=== PATIENT | male | born 1975 | race Caucasian/White ===

== ENCOUNTER 2024-07-26 14:05 | Emergency (ER) | payer BC, SELFPAY ==
[2024-07-26 14:05] VITALS: BMI 32.5
[2024-07-26 14:22] VITALS: BP 161/84; PULSE 93; RESP 18; TEMP 37.3; O2SAT 97
--- NOTE | 2024-07-26 14:25 | XR_ITS ---
Examination: CT abdomen and pelvis without contrast. Coronal 3-D reconstructions. Sagittal 2-D reconstructions. Date and time of exam:July 26, 2024 at 1429 hrs. Indications: Onset lower abdominal pain today CTDI: vol (mGy): 14.2 DLP: (mGycm): 1036 Technique: Axial images of the abdomen have been obtained, 3 mm slice thickness Intravenous contrast material has not been administered. Low dose protocols were performed. One or more of the following dose reduction techniques were used; automated exposure control, adjustment of the mA and/or KV according to patient size, use of iterative reconstruction technique. Findings: No focal liver or splenic lesions No gallstones No pancreatic or adrenal mass End-stage atrophic right kidney with hypertrophy left kidney No left hydronephrosis Normal appendix No bowel obstruction Colonic diverticulosis Acute diverticulitis sigmoid colon axial image 222 but no peridiverticular abscess Bladder intact Impression: Acute sigmoid diverticulitis, no pelvic abscess
[2024-07-26 14:38] LABS: Collection Type, Urine Clean Catch; Squamous Epithelial Cell,Urine 0 /hpf (0-5); WBC,Urine 0 /hpf (0-5)
[2024-07-26] MEDS: IBUPROFEN TAB 400 MG TABLET 800 MG PO (14:41)
[2024-07-26 14:43] LABS: Bilirubin,Urine Negative (Negative); Blood,Urine Negative (Negative); Clarity,Urine Clear (Clear/Hazy); Color,Urine Colorless (Lt Yel-Yel); Culture Indicated,Urine Not Indicated; Glucose, Urine Negative (Negative); Ketones,Urine Negative (Negative); Leukocyte Esterase,Urine Negative (Negative); Nitrite,Urine Negative (Negative); PH,Urine 6.5 (5.0-7.0); Protein,Urine Negative (Neg - Trace); RBC,Urine < 1 /hpf (0-3); Specific Gravity,Urine 1.009 (1.001-1.035); Urobilinogen,Urine Negative mg/dL (0.0-1.0)
[2024-07-26 15:11] LABS: Basophils % (Auto) 0 % (0-2.5); Eosinophils # (Auto) 0.2 Thou/mm3 (0.0-0.5); Eosinophils % (Auto) 1 % (0-10); Hematocrit 40.1 % (41.0-53.0); Hemoglobin 13.8 g/dL (13.5-16.0); Immature Granulocytes % (Auto) 0 % (0-0); Immature Granulocytes Auto 0.05 Thou/mm3 (0.00-0.00); Lymphocytes # (Auto) 2.1 Thou/mm3 (1.0-4.8); Lymphocytes % (Auto) 15 % (10-50); Mean Corpuscular HGB Conc 34.4 g/dl (31.0-37.0); Mean Corpuscular Hemoglobin 29.9 pg (25.0-35.0); Mean Corpuscular Volume 87 fL (80-100); Monocytes # (Auto) 1.6 Thou/mm3 (0.0-0.8); Monocytes % (Auto) 11 % (0-12); Neutrophils # (Auto) 10.2 Thou/mm3 (1.8-7.7); Neutrophils % (Auto) 72 % (37-80); Nucleated Red Blood Cell % 0 /100 WBC (0); Platelet Count 214 Thou/mm3 (140-440); RDW Standard Deviation 41.1 fL (35.1-43.9); Red Blood Count 4.61 Miln/mm3 (4.50-5.90); White Blood Count 14.2 Thou/mm3 (3.8-10.6)
[2024-07-26 15:30] LABS: Alanine Aminotransferase 29 U/L (10-49); Albumin/Globulin Ratio 2.1 (1.2-2.2); Alkaline Phosphatase 109 U/L (46-116); Anion Gap 8 (7-16); Aspartate Amino Transferase 26 U/L (0-34); BUN/Creatinine Ratio 12 Ratio (12-20); Blood Urea Nitrogen 13 mg/dL (9-23); Calcium 9.8 mg/dL (8.3-10.6); Calcium (Corrected) 9.8 mg/dL (8.5-10.1); Carbon Dioxide 27.5 mMol/L (20.0-31.0); Chloride 104 mMol/L (98-107); Creatinine (Component) 1.1 mg/dL (0.6-1.3); Estimated Creatinine Clearance 111.2 mL/min (>60); Globulin 2.4 gm/dL (2.3-3.5); Glucose 109 mg/dL (74-106); Lipase 29 U/L (12-53); Osmolality,Calculated 278 (275-295); Potassium 3.8 mMol/L (3.4-5.1); Sodium 139 mMol/L (136-145); Total Protein 7.4 gm/dL (5.7-8.2); eGFR > 60 See Note
--- NOTE | 2024-07-26 15:52 | PD.EDABDPN ---
ED Abdominal Pain RME/HPI General Chief Complaint: Abdominal Pain Stated complaint: LOWER ABD PAIN WITH BODY ACHE SINCE LAST NIGHT Time seen by provider: 07/26/24 14:16 Arrival date/time: 07/26/24 14:05 48-year-old male with history of hypertension, diverticulitis presents the emergency department complaints of lower abdominal pain patient reports no nausea vomiting or fever patient ports no chest pain shortness of breath. Patient reports symptoms onset last night Limitations: no limitations Related Data Home Medications ?Medication ?Instructions ?Recorded ?Confirmed lisinopril 20 mg tablet 20 mg PO QDAY 12/23/17 02/26/19 omeprazole 20 mg capsule,delayed 20 mg PO DAILY 12/23/17 02/26/19 release Previous Rx's ?Medication ?Instructions ?Recorded ciprofloxacin HCl 500 mg tablet 500 mg PO BID 7 days #14 tabs 07/26/24 ibuprofen 800 mg tablet 800 mg PO TID PRN pain #30 tabs 07/26/24 metronidazole 500 mg tablet 500 mg PO TID 7 days #21 tabs 07/26/24 Allergies Allergy/AdvReac Type Severity Reaction Status Date / Time No Known Allergies Allergy Verified 07/26/24 14:07 Review of Systems Review of Systems Systems Reviewed: All systems reviewed, normal except as documented Constitutional Constitutional: Reports system reviewed and no additional complaints, except as documented, Denies fever(s) and Denies headache(s) Eyes Eyes: Reports system reviewed and no additional complaints, except as documented and Denies blurry vision ENT Ears, Nose, Mouth, and Throat: Reports system reviewed and no additional complaints, except as documented, Denies headache(s), Denies nasal congestion and Denies nasal discharge Cardiovascular Cardiovascular: Reports system reviewed and no additional complaints, except as documented, Denies chest pain and Denies dyspnea Respiratory Respiratory: Reports system reviewed and no additional complaints, except as documented, Denies chest congestion, Denies cough and Denies dyspnea Gastrointestinal Gastrointestinal: Reports system reviewed and no additional complaints, except as documented and Reports abdominal pain Integumentary/Breasts Skin/Breast: Reports system reviewed and no additional complaints, except as documented and Denies rash Neurologic Neurologic: Reports system reviewed and no additional complaints, except as documented, Reports as per HPI and Denies headache(s) Past Medical History Past Medical History CARDIAC: Positive Cardiac Disorders and Hypertension; Negative Congestive Heart Failure RESPIRATORY: Negative Chronic Obstructive Pulmonary Disease (COPD) GASTROINTESTINAL: Positive Gastrointestinal Disorders, Hemorrhoids and Gastroesophageal Reflux Disease GENITOURINARY: Negative Renal Disease ENDOCRINE: Negative Diabetes Mellitus Type 1 or Diabetes Mellitus Type 2 Social History SMOKING STATUS: Never smoker ED Exam General Limitations: Present no limitations General appearance: Present alert and in no apparent distress Head Head exam: Present atraumatic Eye Eye exam: Present normal appearance, PERRL and EOMI; Absent conjunctival injection ENT ENT exam: Present normal exam, normal oropharynx and mucous membranes moist Neck Neck exam: Present normal inspection, full ROM and trachea midline Chest Chest inspection: Present normal inspection and symmetric chest wall rise Respiratory Respiratory exam: Present normal lung sounds bilaterally; Absent respiratory distress Cardiovascular Cardiovascular exam: Present regular rate, normal rhythm and normal heart sounds Abdominal Exam Abdominal exam: Present soft, tenderness and normal bowel sounds; Absent distention, guarding, rebound or rigidity Abdominal tenderness: Present suprapubic and mild Extremities Exam Extremities exam: Present normal inspection and full ROM Back Exam Back exam: Present normal inspection and full ROM Neurological Exam Neurological exam: Present alert, oriented X3 and CN II-XII intact Psychiatric Psychiatric exam: Present normal affect and normal mood Skin Skin exam: Present warm, dry, intact and normal color Course Quality Measures none Orders Category Date Time Status CT abdomen pelvis wo con Stat Exams 07/26/24 14:25 Completed CBC Stat Lab 07/26/24 14:42 Completed Comprehensive Metabolic Panel Stat Lab 07/26/24 14:42 Completed Lipase Stat Lab 07/26/24 14:42 Completed UA, C/S IF [Urinalysis, C/S if Indicated] Stat Lab 07/26/24 14:31 Completed Ibuprofen Tab [Motrin Tab] Med 07/26/24 14:26 Discontinued 800 mg PO X1 ONE Lidocaine 1% 20 ml [Xylocaine 1% 20 ML] Med 07/26/24 16:32 Discontinued 2.1 ml INFL X1 ONE cefTRIAXone [Rocephin] Med 07/26/24 16:32 Discontinued 1,000 mg IM X1 ONE Vital Signs Vital signs: Vital Signs Temperature 99.2 F 07/26/24 14:22 Pulse Rate 93 07/26/24 14:22 Respiratory Rate 18 07/26/24 14:22 Blood Pressure 161/84 H 07/26/24 14:22 Pulse Oximetry (%) 97 07/26/24 14:22 Oxygen Delivery Method Room Air 07/26/24 14:22 O2 saturation 97% room air within normal limits Abdominal Pain MDM MDM Narrative MDM Narrative:: 48-year-old male with history of hypertension, diverticulitis presents the emergency department complaints of lower abdominal pain patient reports no nausea vomiting or fever patient ports no chest pain shortness of breath. Patient reports symptoms onset last night On exam patient well-appearing patient does not appear ill or toxic patient has mild tenderness suprapubic region Lab work and CT scan obtained CT scan consistent with diverticulitis Patient given Rocephin in the emergency department as well as ibuprofen Patient discharged home in no distress to follow-up with primary care doctor in the next 24 to 48 hours and for any worsening symptoms to return to the ER immediately Patient data External records reviewed:: [facility] previous records Clinical information provided by:: patient Social determinants that could affect healthcare access:: none Patient has the following chronic illnesses:: None How is presenting disease/condition affected by chronic disease/condition?: no chronic disease Evaluation data The following diagnostics were reviewed and interpreted by me:: lab results and radiology exam(s) Lab and/or radiology exams considered but not ordered:: Labs and radiology obtained Interpretation Summary: Reviewed by me Medications / Prescriptions Medications or Prescriptions considered but not ordered:: Given Medication administrations:: Medication Administration History Discontinued Medications Ceftriaxone Sodium (Ceftriaxone Sod Inj 1,000 Mg Vial) 1,000 mg IM X1 ONE Stop: 07/26/24 16:33 Last Admin: 07/26/24 16:41 Dose: 1,000 mg Documented By: CHELO Ibuprofen (Ibuprofen Tab 400 Mg Tablet) 800 mg PO X1 ONE Stop: 07/26/24 14:27 Last Admin: 07/26/24 14:41 Dose: 800 mg Documented By: CHELO Lidocaine HCl (Lidocaine Hcl 1% 20 Ml Vial) 2.1 ml INFL X1 ONE Stop: 07/26/24 16:33 Last Admin: 07/26/24 16:40 Dose: 2.1 ml Documented By: CHELO Given Consultations Consultation(s) initiated? (list below): No Diagnosis Differential diagnosis abdominal pain: abdominal pain, acute appendicitis, calculus of kidney, constipation, diverticulitis and pancreatitis Most likely diagnosis given after review of the tests above:: Diverticulitis Admission Indicated Admission indicated?: not indicated Admission Request Was there a request for admission?: No Disposition Plan Disposition Plan: Discharge Discharge Attestation Discharge Attestation: The patient and all family members were given an opportunity to ask questions and understood the discharge instructions. Discharge instructions specifically effects, indications for sooner follow up or return to the emergency department, and the expected course of current diagnosis. Patient condition: Stable Discharge Plan Plan Patient Disposition: HOME (Self Care) Disposition Comment: Stable Prescriptions/Referrals Prescriptions/Med Rec: New ibuprofen 800 mg tablet 800 mg PO TID PRN (Reason: pain) Qty: 30 0RF metronidazole 500 mg tablet 500 mg PO TID 7 Days Qty: 21 0RF ciprofloxacin HCl 500 mg tablet 500 mg PO BID 7 Days Qty: 14 0RF No Action lisinopril 20 mg Tablet 20 mg PO QDAY omeprazole 20 mg Capsule,Delayed Release(Dr/Ec) 20 mg PO DAILY Referrals: No Primary/Family,Physician [Primary Care Provider] - 07/27/24 Problem List Clinical Impression: Diverticulitis Patient/Caregiver Discharge Instructions Education Materials: ED Diverticulitis Additional Instructions: Please follow up with your primary care doctor in the next 24-48hrs for any worsening symptoms return here immediately Print Language: Kiswahili Stand Alone Forms: Shanae Award Info., Patient Portal Info Letter PA/TECH[employer] Supervising Physician PA/DUTCH Supervising Physician: dr bourgeois
[2024-07-26] MEDS: LIDOCAINE HCL 1% 20 ML VIAL 2.1 ML INFL (16:40)
[2024-07-26] MEDS: cefTRIAXone SOD INJ 1,000 MG VIAL 1000 MG IM (16:41)
== END 2024-07-26 16:51 | disposition home or self-care (01) ==
PROVIDERS: Nurse Practitioner Primary Care; Emergency Provider Emergency Medicine
DX: K57.32 Diverticulitis of large intestine without perforation or abscess without bleeding (principal)
CPT/HCPCS: 36415; 74176; 80053; 81001; 83690; 85025; 96372; 99284; J0696; J3490; A9270

== ENCOUNTER 2024-12-10 10:40 | Day surgery (SDC) | payer BC, SELFPAY ==
[2024-12-07 14:33] VITALS: BMI 33.1
[2024-12-10] VITALS (14 sets, daily range): BP systolic 111–157; BP diastolic 72–107; PULSE 70–113; RESP 15–22; TEMP 36.6–37.1; O2SAT 94–100; BMI 32.7
[2024-12-10] MEDS: fentaNYL CIT INJ 50 mCg/ML AMP 2ML (ASD USE ONLY) IV (12:46)
[2024-12-10] MEDS: MIDAZOLAM INJ 1 MG/ML VIAL 2 ML (ASD USE ONLY) 2 MG IV (12:46)
[2024-12-10] MEDS: MEPERIDINE INJ 25 MG/ML VIAL (ASD USE ONLY) 50 MG IV (12:46)
[2024-12-10] MEDS: SODIUM CHLORIDE 0.9% 500 ML 500 ML 20 ML IV (12:46)
[2024-12-10] MEDS: DiphenhydrAMINE INJ 50 MG/ML VIAL 25 MG IV (12:47)
== END 2024-12-10 13:32 | disposition home or self-care (01) ==
PROVIDERS: PCP Family Medicine; Referring Provider Specialist; Visit Provider Specialist
PROC: 0DBE8ZX Excision of Large Intestine, Via Natural or Artificial Opening Endoscopic, Diagnostic (ICD-10-PCS; CPT 45380; principal; 2024-12-10 09:30)
DX: Z12.11 Encounter for screening for malignant neoplasm of colon (principal); Z80.0 Family history of malignant neoplasm of digestive organs; K64.9 Unspecified hemorrhoids; K57.30 Diverticulosis of large intestine without perforation or abscess without bleeding; Q43.8 Other specified congenital malformations of intestine
CPT/HCPCS: 45378; J1200; J2175; J2250; J3010; J7040

== ENCOUNTER → 2025-02-21 | Outpatient (CLI) | payer BC, SELFPAY ==
[2025-02-21 08:08] LABS: Collection Type, Urine Clean Catch; Squamous Epithelial Cell,Urine 0 /hpf (0-5)
[2025-02-21 08:25] LABS: Basophils # (Auto) 0.1 Thou/mm3 (0.0-0.2); Basophils % (Auto) 1 % (0-2.5); Eosinophils # (Auto) 0.3 Thou/mm3 (0.0-0.5); Eosinophils % (Auto) 4 % (0-10); Hematocrit 40.2 % (41.0-53.0); Hemoglobin 14.2 g/dL (13.5-16.0); Immature Granulocytes % (Auto) 0 % (0-0); Immature Granulocytes Auto 0.02 Thou/mm3 (0.00-0.00); Lymphocytes % (Auto) 29 % (10-50); Mean Corpuscular HGB Conc 35.3 g/dl (31.0-37.0); Mean Corpuscular Hemoglobin 29.8 pg (25.0-35.0); Mean Corpuscular Volume 85 fL (80-100); Monocytes # (Auto) 0.6 Thou/mm3 (0.0-0.8); Monocytes % (Auto) 9 % (0-12); Neutrophils # (Auto) 3.9 Thou/mm3 (1.8-7.7); Neutrophils % (Auto) 56 % (37-80); Nucleated Red Blood Cell % 0 /100 WBC (0); Platelet Count 225 Thou/mm3 (140-440); RDW Standard Deviation 41.6 fL (35.1-43.9); Red Blood Count 4.76 Miln/mm3 (4.50-5.90); White Blood Count 6.9 Thou/mm3 (3.8-10.6)
[2025-02-21 08:36] LABS: Glucose Estimated Average 103 mg/dL (80-131); Hemoglobin A1C 5.2 % Hgb (4.8-6.0)
[2025-02-21 08:37] LABS: Bilirubin,Urine Negative (Negative); Blood,Urine Negative (Negative); Clarity,Urine Clear (Clear/Hazy); Color,Urine Lt-Yellow (Lt Yel-Yel); Glucose, Urine Negative (Negative); Ketones,Urine Negative (Negative); Leukocyte Esterase,Urine Negative (Negative); Nitrite,Urine Negative (Negative); PH,Urine 6.5 (5.0-7.0); Protein,Urine Negative (Neg - Trace); RBC,Urine 1 /hpf (0-3); Urobilinogen,Urine Negative mg/dL (0.0-1.0); WBC,Urine < 1 /hpf (0-5)
[2025-02-21 08:41] LABS: Alanine Aminotransferase 37 U/L (10-49); Albumin, Serum 4.5 gm/dL (3.5-5.0); Alkaline Phosphatase 92 U/L (46-116); Anion Gap 9 (7-16); Aspartate Amino Transferase 28 U/L (0-34); BUN/Creatinine Ratio 14 Ratio (12-20); Bilirubin,Total 0.6 mg/dL (0.3-1.2); Blood Urea Nitrogen 14 mg/dL (9-23); Calcium 9.4 mg/dL (8.3-10.6); Calcium (Corrected) 9.4 mg/dL (8.5-10.1); Carbon Dioxide 25.8 mMol/L (20.0-31.0); Cardiac Risk Estimate 2.8 RATIO (4.0-6.7); Chloride 106 mMol/L (98-107); Cholesterol 170 mg/dL (132-200); Globulin 2.2 gm/dL (2.3-3.5); Glucose 106 mg/dL (74-106); HDL Cholesterol 60 mg/dL (40-60); LDL Cholesterol,Calculated 95 mg/dL (0-130); Osmolality,Calculated 281 (275-295); Potassium 4.3 mMol/L (3.4-5.1); Sodium 141 mMol/L (136-145); Total Protein 6.7 gm/dL (5.7-8.2); Triglycerides 76 mg/dL (30-150); eGFR > 60 See Note
[2025-02-21 08:44] LABS: Vitamin D 25 Hydroxy Total 34.9 ng/mL (7.3-40.2)
[2025-02-27 13:49] LABS: PSA, Free 0.21 ng/mL; PSA, Total 0.9 ng/mL (< OR = 4.0)
== END | disposition home or self-care (01) ==
PROVIDERS: PCP Nurse Practitioner Family; Referring Provider Nurse Practitioner Family; Visit Provider Nurse Practitioner Family
DX: E56.9 Vitamin deficiency, unspecified (principal); I10 Essential (primary) hypertension; N40.0 Benign prostatic hyperplasia without lower urinary tract symptoms; Z13.1 Encounter for screening for diabetes mellitus; Z13.220 Encounter for screening for lipoid disorders
CPT/HCPCS: 36415; 80053; 80061; 81001; 82306; 83036; 84153; 84154; 85025

== ENCOUNTER 2025-08-07 09:44 | Emergency (ER) | payer BC, SELFPAY ==
[2025-08-07 10:32] VITALS: BP 114/76; PULSE 88; RESP 18; TEMP 37.1; O2SAT 98; BMI 35.0
--- NOTE | 2025-08-07 10:43 | PD.EDNV ---
Nausea/Vomit./Diarrhea-RME/HPI General Chief complaint: Nausea/Vomiting/Diarrhea Stated complaint: Diarrhea, lower abdomen pain X 4 days Time Seen by Provider: 08/07/25 10:38 Arrival date/time: 08/07/25 09:44 RME / HPI RME / HPI Narrative: 49-year-old male with past medical history of diverticulosis, hemorrhoids, diverticulitis status post colonoscopy 1 year ago without any additional findings presents to the ER complaining of lower abdominal pain along with diarrhea which has been watery without any blood or mucus for the past 4 days. Denies any fever, nausea, vomiting, dysuria. Related Data Home Medications ?Medication ?Instructions ?Recorded ?Confirmed lisinopril 20 mg tablet 40 mg PO QDAY 12/23/17 12/07/24 omeprazole 20 mg capsule,delayed 40 mg PO DAILY 12/23/17 12/07/24 release amlodipine 5 mg tablet 5 mg PO .qhs 12/07/24 12/07/24 gabapentin 300 mg capsule 300 mg PO QDAY 12/07/24 12/07/24 tamsulosin 0.4 mg capsule 0.4 mg PO Q24H 12/07/24 12/07/24 Previous Rx's ?Medication ?Instructions ?Recorded ciprofloxacin HCl 500 mg tablet 500 mg PO Q12H #20 tabs 08/07/25 metronidazole 500 mg tablet 500 mg PO Q8H 10 days #30 tabs 08/07/25 ondansetron 4 mg disintegrating 4 mg PO Q8H PRN nausea and 08/07/25 tablet vomiting #12 tabs Allergies Allergy/AdvReac Type Severity Reaction Status Date / Time No Known Allergies Allergy Verified 08/07/25 09:48 ED Exam Narrative Physical exam: Constitutional: Patient alert and oriented. Well appearing. No acute distress. Not toxic appearing. Head: Normocephalic, atraumatic. Eyes: Periorbital regions bilaterally normal to inspection. Conjunctiva clear bilaterally. Sclera anicteric bilaterally. Pupils equal, round, reactive to light bilaterally. Extraocular movements intact bilaterally. Mouth/Throat: Mucous membranes moist. No stridor or muffled voice. No trismus. Handling secretions without difficulty. Airway widely patent. Neck: Supple. Trachea midline. No JVD. No nuchal rigidity. Normal range of motion. Respiratory: Normal effort. No accessory muscle use or respiratory distress. Lungs clear to auscultation bilaterally without rhonchi, wheezes, or crackles. Cardiovascular: RRR. Normal S1/S2. No murmurs or rubs. Radial pulses intact bilaterally. Abdomen: Soft. Non-distended. Positive left and right lower quadrant tenderness to palpation. No guarding or rebound. No pulsatile mass. Negative Epps?s sign. Negative McBurney?s point tenderness. Negative Rovsing?s. Back: No midline tenderness or step-offs. No CVA tenderness to palpation bilaterally. Upper Extremities: No gross deformities. Lower Extremities: No gross deformities. No edema or calf tenderness. Neuro: Speech normal. No gross motor or sensory deficits to upper or lower extremities bilaterally. GCS 15. CN II?XII grossly intact. Skin: Warm, dry, normal color. Psych: Normal affect. Cooperative. Normal insight. Course Quality Measures none Orders Category Date Time Status NPO NOW Care 08/07/25 10:45 Active Diet NPO (NOW) Diet 08/07/25 10:[address] abdomen pelvis wo con Stat Exams 08/07/25 10:45 Completed CBC Stat Lab 08/07/25 10:58 Completed CMP [Comprehensive Metabolic Panel] Stat Lab 08/07/25 10:58 Completed Lipase Stat Lab 08/07/25 10:58 Completed Urinalysis Stat Lab 08/07/25 12:09 Completed Urine Culture Stat Lab 08/07/25 12:09 Received c diff [Clostridium Difficile PCR] Stat Lab 08/07/25 Ordered Ciprofloxacin HCl [Ciprofloxacin] Med 08/07/25 15:25 Discontinued 500 mg PO X1 ONE Ketorolac Inj [Toradol Inj] Med 08/07/25 10:45 Discontinued 30 mg IM X1 ONE Ondansetron Odt [Zofran Odt] Med 08/07/25 10:45 Discontinued 4 mg PO X1 ONE metroNIDAZOLE [Flagyl] Med 08/07/25 15:25 Discontinued 500 mg PO X1 ONE Vital Signs Vital signs: Vital Signs Temperature 98.7 F 08/07/25 10:32 Pulse Rate 88 08/07/25 10:32 Respiratory Rate 18 08/07/25 10:32 Blood Pressure 114/76 08/07/25 10:32 Pulse Oximetry (%) 98 08/07/25 10:32 Oxygen Delivery Method Room Air 08/07/25 10:32 Nausea/Vomiting/Diarrhea MDM Narrative MDM Narrative:: MDM: The patient presents with abdominal pain without definite explanation found on evaluation today. I suspect patient's pain may be secondary to enteritis versus colitis versus early diverticulitis which is uncomplicated at this time. There is no abscess or perforation. However, there are no signs of peritonitis or other life-threatening or serious etiology. I considered admission; however, given negative work up and imaging, admission is not indicated. Serial abdominal exams were benign throughout the ED stay, and the patient tolerated oral intake without difficulty. Patient will be provided with ciprofloxacin and Flagyl and I advised patient about medication precautions including risk of tendon rupture with these medications. I also advised patient to perform a clear liquid diet and advance as tolerated with low fiber. The inherent uncertainty with undifferentiated abdominal pain was emphasized, and strict return precautions were provided. The patient has been instructed that this presentation could represent an early acute abdominal process. The plan is for mandatory re-evaluation within 24 hours and immediate return for worsening, persistence, or change in symptoms. The patient may follow up with their primary care provider or return to the ED as appropriate. The patient appears stable for discharge at this time. At the time of reassessment prior to discharge, the patient remains alert and oriented ?3 with GCS 15. Serial abdominal exams benign without peritonitis. Vitals are normal, pain is controlled, and the patient is tolerating oral intake without nausea or vomiting. The patient is agreeable to discharge and verbalizes understanding of the diagnosis, studies, treatment plan, medications (including side effects/precautions), and strict ER return precautions as discussed in the ED. All concerns were addressed, and the patient is comfortable with the plan. Patient data External records reviewed:: [facility] previous records Clinical information provided by:: patient Social determinants that could affect healthcare access:: housing Patient has the following chronic illnesses:: As noted How is presenting disease/condition affected by chronic disease/condition?: no chronic disease Evaluation data The following diagnostics were reviewed and interpreted by me:: other (specify) Lab and/or radiology exams considered but not ordered:: Additional Labs and radiology considered, but not ordered as they were not clinically indicated at this time. Interpretation Summary: Lab work with a normal white blood cell count of 8.6, monocyte percentage elevated 15, monocyte number elevated 1.3 thousand, immature granulocyte number minimally elevated 0.08 thousand and immature granulocyte site percentage minimally elevated 1% Potassium minimally low 3.2, glucose minimally elevated 108, AST minimally elevated 37 otherwise no severe metabolic or electrolyte abnormality and lipase within normal limits UA notable for 5 RBCs rare bacteria trace blood and trace protein however no signs of nitrites or leuks CT scan notable for fluid stranding surrounding the cecum as well as the ascending colon and ventral mural wall thickening of the distal terminal ileum. The appendix is well-seen and is normal. There is no perforation or abscess appreciated. Additionally there is no focal diverticulitis appreciated. Medications / Prescriptions Medications / Prescriptions considered but not ordered:: I ordered medications based on the patient?s clinical needs and assessment, as documented in the chart. For medications not prescribed, they were not indicated for the patient's current condition, and I determined they were unnecessary at this time to avoid potential risks or complications. Medication administrations:: Medication Administration History Discontinued Medications Ciprofloxacin (Ciprofloxacin Hcl 250 Mg Tablet) 500 mg PO X1 ONE Stop: 08/07/25 15:26 Ketorolac Tromethamine (Ketorolac Inj 30 Mg/Ml Vial) 30 mg IM X1 ONE Stop: 08/07/25 10:46 Last Admin: 08/07/25 10:55 Dose: 30 mg Documented By: KAYDEN Metronidazole (Metronidazole 250 Mg Tablet) 500 mg PO X1 ONE Stop: 08/07/25 15:26 Ondansetron HCl (Ondansetron Odt 4 Mg Tabrap) 4 mg PO X1 ONE; Protocol Stop: 08/07/25 10:46 Last Admin: 08/07/25 10:55 Dose: 4 mg Documented By: KAYDEN As noted Consultations Consultation(s) initiated? (list below): No Diagnosis Nausea Differential Diagnosis: traveler's diarrhea, food poisoning and gastroenteritis Most likely diagnosis given after review of the tests above:: Colitis Admission Indicated Admission indicated?: not indicated Admission Request Was there a request for admission?: No Disposition Plan Disposition Plan: Discharge Discharge Attestation Discharge Attestation: The patient and all family members were given an opportunity to ask questions and understood the discharge instructions. Discharge instructions specifically effects, indications for sooner follow up or return to the emergency department, and the expected course of current diagnosis. Patient condition: Stable Discharge Plan Plan Patient Disposition: HOME (Self Care) Patient condition on transfer: Stable Prescriptions/Referrals Prescriptions/Med Rec: New metronidazole 500 mg tablet 500 mg PO Q8H 10 Days Qty: 30 0RF ciprofloxacin HCl 500 mg tablet 500 mg PO Q12H Qty: 20 0RF ondansetron 4 mg tablet,disintegrating 4 mg PO Q8H PRN (Reason: nausea and vomiting) Qty: 12 0RF Rx Instructions: 1-2 tabs PO Q8Hr prn nausea or vomit No Action lisinopril 20 mg Tablet 40 mg PO QDAY omeprazole 20 mg Capsule,Delayed Release(Dr/Ec) 40 mg PO DAILY amlodipine 5 mg tablet 5 mg PO .qhs tamsulosin 0.4 mg capsule 0.4 mg PO Q24H gabapentin 300 mg capsule 300 mg PO QDAY Referrals: No Primary/Family,Physician [Primary Care Provider] - In 1 week Problem List Clinical Impression: Gastroenteritis, Colitis, Diverticulitis Impression comment: Concern for early acute uncomplicated diverticulitis as well Patient/Caregiver Discharge Instructions Education Materials: ED Diverticulitis Additional Instructions: Follow up with your primary medical doctor within 24 hours. Return to the Emergency Room immediately for any new, worsening, continuing symptoms or any concerns at all. Return to the Emergency Room within 24 hours if you are unable to follow up with your primary medical doctor within 24 hours. Follow-up with your GI doctor this week as well. Perform a clear liquid diet and advance as tolerated. Perform a low fiber diet. Print Language: Azeri Stand Alone Forms: Shanae Award Info., Patient Portal Info Letter PA/[employer] Supervising Physician PA/DUTCH Supervising Physician: Dr. Altman
--- NOTE | 2025-08-07 10:45 | XR_ITS ---
Examination: CT abdomen and pelvis without contrast. Coronal 3-D reconstructions. Sagittal 2-D reconstructions. Date and time of exam: 08/07/2025 at 11:11 a.m. Clinical history periumbilical pain and upper and lower abdominal pain with nausea of 1 day duration CTDI: vol (mGy): 14.5 DLP: (mGycm): 994 Technique: Axial images of the abdomen have been obtained, 3 mm slice thickness Intravenous contrast material has not been administered. Low dose protocols were performed. One or more of the following dose reduction techniques were used; automated exposure control, adjustment of the mA and/or KV according to patient size, use of iterative reconstruction technique. Findings: The lower lungs are clear normal. In the spine there is major complete degenerative disc space narrowing at L4-5 and L5-S1 with surrounding osteophyte. The noncontrast appearance of the liver and spleen and pancreas appear normal. Both adrenal glands appear normal. The right kidney is severely atrophic, which could be congenital in nature. There is compensatory enlargement of the left kidney which measures 12 cm in length, the CT appearance of the left kidney is otherwise entirely normal. The loops of small bowel appear normal. In the region of the ileocecal valve and cecum and ascending colon, the appendix is well-seen and is perfectly normal. However there is mild but definite fluid intensity stranding noted surrounding the cecum and proximal ascending colon I am not able to identify a specific focus of diverticulitis, etc. There is intramural circumferential thickening of the bowel wall involving the distal loop of terminal ileum. The remainder of the colon appears normal. The patient's prostate gland is enlarged measuring 5.5 cm in diameter. IMPRESSION: 1. There is very severe, complete atrophy of the right kidney which is probably congenital. There is mild compensatory hypertrophy of the left kidney which otherwise appears normal. 2. There is definite abnormal fluid density stranding in the pericolic fat surrounding the cecum and proximal ascending colon. There is mild definite circumferential intramural thickening involving the distal 10 cm of the terminal ileum. Appendix is well-seen and perfectly normal. These findings do definitely suggest the presence of some localized inflammation in this region. 3. There is enlargement of the prostate gland. There is major degenerative disc disease at L4-5 and L5-S1.
[2025-08-07] MEDS: KETOROLAC INJ 30 MG/ML VIAL IM (10:55)
[2025-08-07] MEDS: ONDANSETRON ODT 4 MG TABRAP PO (10:55)
[2025-08-07 11:29] LABS: Basophils # (Auto) 0.0 Thou/mm3 (0.0-0.2); Basophils % (Auto) 1 % (0-2.5); Eosinophils # (Auto) 0.1 Thou/mm3 (0.0-0.5); Eosinophils % (Auto) 1 % (0-10); Hematocrit 42.1 % (41.0-53.0); Hemoglobin 14.7 g/dL (13.5-16.0); Immature Granulocytes Auto 0.08 Thou/mm3 (0.00-0.00); Lymphocytes # (Auto) 1.9 Thou/mm3 (1.0-4.8); Lymphocytes % (Auto) 22 % (10-50); Mean Corpuscular HGB Conc 34.9 g/dl (31.0-37.0); Mean Corpuscular Hemoglobin 29.3 pg (25.0-35.0); Mean Corpuscular Volume 84 fL (80-100); Monocytes # (Auto) 1.3 Thou/mm3 (0.0-0.8); Monocytes % (Auto) 15 % (0-12); Neutrophils # (Auto) 5.3 Thou/mm3 (1.8-7.7); Neutrophils % (Auto) 61 % (37-80); Nucleated Red Blood Cell # 0.00 Thou/mm3 (0.00-0.00); Nucleated Red Blood Cell % 0 /100 WBC (0); Platelet Count 228 Thou/mm3 (140-440); RDW Standard Deviation 41.4 fL (35.1-43.9); Red Blood Count 5.01 Miln/mm3 (4.50-5.90); White Blood Count 8.6 Thou/mm3 (3.8-10.6)
[2025-08-07 11:50] LABS: Alanine Aminotransferase 36 U/L (10-49); Albumin, Serum 4.6 gm/dL (3.5-5.0); Albumin/Globulin Ratio 1.6 (1.2-2.2); Alkaline Phosphatase 85 U/L (46-116); Anion Gap 13 (7-16); Aspartate Amino Transferase 37 U/L (0-34); BUN/Creatinine Ratio 13 Ratio (12-20); Bilirubin,Total 0.7 mg/dL (0.3-1.2); Blood Urea Nitrogen 16 mg/dL (9-23); Calcium 9.2 mg/dL (8.3-10.6); Calcium (Corrected) 9.2 mg/dL (8.5-10.1); Carbon Dioxide 24.7 mMol/L (20.0-31.0); Chloride 103 mMol/L (98-107); Creatinine (Component) 1.2 mg/dL (0.6-1.3); Estimated Creatinine Clearance 104.6 mL/min (>60); Globulin 2.9 gm/dL (2.3-3.5); Glucose 108 mg/dL (74-106); Lipase 26 U/L (12-53); Osmolality,Calculated 283 (275-295); Potassium 3.2 mMol/L (3.4-5.1); Sodium 141 mMol/L (136-145); Total Protein 7.5 gm/dL (5.7-8.2); eGFR > 60 See Note
[2025-08-07 12:20] LABS: Collection Type, Urine Voided; Squamous Epithelial Cell,Urine 0 /hpf (0-5)
[2025-08-07 12:26] LABS: Bacteria,Urine Rare; Bilirubin,Urine Negative (Negative); Blood,Urine Trace (Negative); Clarity,Urine Clear (Clear/Hazy); Color,Urine Yellow (Lt Yel-Yel); Glucose, Urine Negative (Negative); Ketones,Urine Negative (Negative); Leukocyte Esterase,Urine Negative (Negative); Nitrite,Urine Negative (Negative); PH,Urine 6.0 (5.0-7.0); Protein,Urine Trace (Neg - Trace); RBC,Urine 5 /hpf (0-3); Specific Gravity,Urine 1.015 (1.001-1.035); Urobilinogen,Urine Negative mg/dL (0.0-1.0); WBC,Urine 2 /hpf (0-5)
[2025-08-07] MEDS: CIPROFLOXACIN HCL 250 MG TABLET 500 MG PO (16:21)
[2025-08-07 17:25] VITALS: BP 108/73; PULSE 86; RESP 18; TEMP 36.8; O2SAT 98
== END 2025-08-07 17:26 | disposition home or self-care (01) ==
PROVIDERS: Emergency Provider Physician Assistant
DX: K52.9 Noninfective gastroenteritis and colitis, unspecified (principal); K57.12 Diverticulitis of small intestine without perforation or abscess without bleeding
CPT/HCPCS: 36415; 74176; 80053; 81001; 83690; 85025; 87086; 87493; 96372; 99283; J1885; Q0162; A9270